=== PATIENT | male | born 1945 | race Caucasian/White ===

== ENCOUNTER 2019-09-27 12:52 | Emergency (ER) | payer BC ==
--- NOTE | 2019-09-27 13:57 | EDM.PDOC ---
<Disha Steiner - Last Filed: 09/27/19 18:17> ED HPI GENERAL MEDICAL PROBLEM - General Chief Complaint: Genitourinary Problem Stated Complaint: MEDICAL [facility]IA [facility] Time Seen by Provider: 09/27/19 13:30 Source of Information: Reports: Patient, Family, RN History Limitations: Reports: No Limitations ( provided history, pt has hx of CVA) - History of Present Illness INITIAL COMMENTS - FREE TEXT/NARRATIVE: Mani presents to the ED with c/o weakness, increased urinary incontinence, and sweating. Pt's spouse provides the history. They are from [place] and in March of this year, the patient was hospitalized for urosepsis for 5 days. In April, he was in the ER for constipation and it was thought it was due to urinary retention that was putting pressure on the colon. A briones catheter was placed for two weeks with the plan to follow-up with urology in 6 weeks. However, then COVID-19 hit and the follow-up was never completed as the felt he was doing better. On Thursday evening, the states that the patient was more awake overnight and had increased incontinence. On thursday, he was wanting to void every 1 hour. He does ambulate with a walker and the noted increased poor balance as of late. Thursday into thursday, increased night time wakefulness still present and was again incontinent. This morning, weakness was more pronounced. was going to shower pt around 8:00 and felt he was too weak and worried about a fall. She was able to get him into his lift chair/ recliner and the left to run a quick errand. When she got home, she was unable to get him out of his chair due to weakness. She called in 2 extra family members to help and still unable to get him from his chair. EMS was then summoned for transport to ED. History of bilateral CVA in 2009. He has some periods of incontinence. He did see a neurologist in [place] prior to coming to [place] and neurologist suspects the patient still has an infection in his urinary tract. Onset: Gradual Duration: Day(s): (2) Location: Reports: Back (mid back pain since march), Other (generalized weakness) Quality: Reports: Ache Associated Symptoms: Reports: Diaphoresis. Denies: Chest Pain, Shortness of Breath - Related Data Allergies Allergy/AdvReac Type Severity Reaction Status Date / Time amoxicillin Allergy Rash Verified 09/30/15 19:17 Home Meds: Home Meds Aspirin 81 mg PO DAILY 09/30/15 [History] Dofetilide [Tikosyn] 500 mg PO BID 09/30/15 [History] Losartan [Cozaar] 50 mg PO DAILY 09/30/15 [History] Venlafaxine [Venlafaxine HCl ER] 300 mg PO DAILY 09/30/15 [History] Warfarin Sodium 6 mg PO DAILY 09/30/15 [History] atorvaSTATin Calcium [Atorvastatin Calcium] 10 mg PO DAILY 09/30/15 [History] ARIPiprazole [Aripiprazole] 5 mg PO DAILY 09/27/19 [History] Glucosam/Chond/Collagen/Hyalur [Glucosamine Chondroitin] 1 each PO DAILY 09/27/19 [History] Past Medical History Cardiovascular History: Reports: Afib Genitourinary History: Reports: Urinary Incontinence, UTI, Recurrent Other Genitourinary History: urosepsis March 2019 Neurological History: Reports: CVA Psychiatric History: Reports: Depression Dermatologic History: Reports: Melanoma - Infectious Disease History Infectious Disease History: Reports: C-Difficile, Measles, Mumps - Past Surgical History HEENT Surgical History: Reports: Oral Surgery GI Surgical History: Reports: Appendectomy Musculoskeletal Surgical History: Reports: Knee Replacement Social & Family History - Tobacco Use Smoking Status *Q: Former Smoker Used Tobacco, but Quit: Yes Month/Year Tobacco Last Used: 45 years ago - Caffeine Use Caffeine Use: Reports: None - Recreational Drug Use Recreational Drug Use: No ED ROS GENERAL - Review of Systems Review Of Systems: See Below Constitutional: Reports: Fatigue, Diaphoresis. Denies: Decreased Appetite HEENT: Reports: No Symptoms. Denies: Vision Change Respiratory: Reports: No Symptoms. Denies: Shortness of Breath, Cough Cardiovascular: Reports: No Symptoms. Denies: Edema Endocrine: Reports: No Symptoms GI/Abdominal: Reports: Abdominal Pain (left sided- mild pain), Diarrhea (on thursday) : Reports: Frequency, Incontinence (has some chronic incontinence) Musculoskeletal: Reports: Back Pain (mid back pain since march) Skin: Reports: No Symptoms Neurological: Reports: Pre-Existing Deficit (hx of bilat CVA in 2009) Psychiatric: Reports: No Symptoms Hematologic/Lymphatic: Reports: No Symptoms Immunologic: Reports: No Symptoms ED EXAM, RENAL/ - Physical Exam Exam: See Below Exam Limited By: Physical Impairment General Appearance: Alert, WD/WN, No Apparent Distress Ears: Normal External Exam, Hearing Grossly Normal Nose: Normal Inspection Throat/Mouth: Normal Inspection Head: Atraumatic, Normocephalic Neck: Normal Inspection, Supple, Non-Tender. No: Lymphadenopathy (R), Lymphadenopathy (L) Respiratory/Chest: No Respiratory Distress, Lungs Clear (diminished), No Accessory Muscle Use, Chest Non-Tender. No: Rales, Rhonchi, Wheezing Cardiovascular: Normal Peripheral Pulses, Regular Rate, Rhythm, No Edema, No Murmur GI/Abdominal: Soft, No Distention, Tender (along left side- with deep palpation), Abnormal Bowel Sounds (hypoactive) (Male) Exam: No: Suprapubic Fullness Rectal (Males) Exam: Deferred Back Exam: Normal Inspection, Decreased Range of Motion (stiff ). No: CVA Tenderness (R), CVA Tenderness (L) Extremities: Normal Inspection, No Pedal Edema, Normal Capillary Refill Neurological: Alert, Oriented, Sensory/Motor Deficit (due to CVA) Psychiatric: Normal Mood Skin Exam: Warm, Diaphoretic Lymphatic: No Adenopathy Course - Radiology Interpretation Free Text/Narrative:: no acute concerns with chest x-ray - Re-Assessments/Exams Free Text/Narrative Re-Assessment/Exam: 09/27/19 15:54 updated patient and spouse on blood work, chest x-ray, and plan for blood cultures and Rocephin. They are agreeable to plan. Free Text/Narrative Re-Assessment/Exam: 09/27/19 17:12 tried to stand patient. pt unable to stand- very weak- falls backwards- took 3 staff to get back to bed. Departure - Departure Time of Disposition: 17:40 Disposition: Refer to Observation Condition: Good Clinical Impression: Weakness generalized, Balance problems, Intraparenchymal hemorrhage of brain - Discharge Information *PRESCRIPTION DRUG MONITORING PROGRAM REVIEWED*: No *COPY OF PRESCRIPTION DRUG MONITORING REPORT IN PATIENT AMBER: No Sepsis Event Note (ED) - Evaluation Sepsis Screening Result: No Definite Risk - Assessment/Plan Plan: call to Dr Dee MD hospitalist for evaluation for admission <Juventino Gilman - Last Filed: 09/27/19 21:02> Course - Vital Signs Last Recorded V/S: Last Vital Signs Temp 97.9 F 09/27/19 19:48 Pulse 69 09/27/19 20:15 Resp 15 09/27/19 20:15 BP 137/74 09/27/19 20:15 Pulse Ox 91 L 09/27/19 20:15 - Orders/Labs/Meds Orders: Active Orders 24 hr Category Date Time Status EKG Documentation Completion [RC] ASDIRECTED Care 09/27/19 14:39 Active CULTURE BLOOD [BC] Urgent Lab 09/27/19 15:55 Received CULTURE BLOOD [BC] Urgent Lab 09/27/19 16:00 Received CULTURE URINE [RM] Stat Lab 09/27/19 14:37 Received Blood Culture x2 Reflex Set [OM.PC] Urgent Oth 09/27/19 15:52 Ordered EKG 12 Lead [EK] Routine Ther 09/27/19 14:39 Ordered Medication Orders Nicardipine HCl 25 mg/ Sodium (Chloride) 250 mls @ 50 mls/hr IV TITRATE KVNG; Protocol Last Admin: 09/27/19 19:53 Dose: 5 mg/hr, 50 mls/hr Documented by: JOSE ANTONIO Labs: Laboratory Tests 09/27/19 09/27/19 09/27/19 Range/Units 13:54 13:54 13:54 WBC 5.5 (4.5-11.0) K/uL RBC 5.06 (4.30-5.90) M/uL Hgb 14.6 (12.0-15.0) g/dL Hct 44.5 (40.0-54.0) % MCV 88 (80-98) fL MCH 29 (27-31) pg MCHC 33 (32-36) % Plt Count 244 (150-400) K/uL Neut % (Auto) 60 (36-66) % Lymph % (Auto) 27 (24-44) % [place] % (Auto) 11 H (2-6) % Eos % (Auto) 2 (2-4) % Baso % (Auto) 0 (0-1) % PT (9.5-12.0) sec INR (0.80-1.20) Sodium 140 (140-148) mmol/L Potassium 4.3 (3.6-5.2) mmol/L Chloride 104 (100-108) mmol/L Carbon Dioxide 26 (21-32) mmol/L Anion Gap 10.1 (5.0-14.0) mmol/L BUN 18 (7-18) mg/dL Creatinine 1.3 (0.8-1.3) mg/dL Est Cr Clr Drug Dosing 53.06 mL/min Estimated GFR (MDRD) 54 L (>60) Glucose 149 H (74-106) mg/dL Lactic Acid (0.4-2.0) mmol/L Calcium 9.0 (8.5-10.1) mg/dL Total Bilirubin 0.3 (0.2-1.0) mg/dL AST 32 (15-37) U/L ALT 42 (12-78) U/L Alkaline Phosphatase 87 (46-116) U/L C-Reactive Protein 0.29 (0.0-0.3) mg/dL Total Protein 7.8 (6.4-8.2) g/dL Albumin 3.5 (3.4-5.0) g/dL Globulin 4.3 H (2.3-3.5) g/dL Albumin/Globulin Ratio 0.8 L (1.2-2.2) Urine Color (YELLOW) Urine Appearance (CLEAR) Urine pH (5.0-8.0) Ur Specific [place] (1.008-1.030) Urine Protein (NEGATIVE) mg/dL Urine Glucose (UA) (NEGATIVE) mg/dL Urine Ketones (NEGATIVE) mg/dL Urine Occult Blood (NEGATIVE) Urine Nitrite (NEGATIVE) Urine Bilirubin (NEGATIVE) Urine Urobilinogen (0.2-1.0) EU/dL Ur Leukocyte Esterase (NEGATIVE) Urine RBC (0-5) Urine WBC (0-5) Ur Epithelial Cells Amorphous Sediment Urine Bacteria Urine Mucus 09/27/19 09/27/19 09/27/19 Range/Units 13:54 14:12 15:20 WBC (4.5-11.0) K/uL RBC (4.30-5.90) M/uL Hgb (12.0-15.0) g/dL Hct (40.0-54.0) % MCV (80-98) fL MCH (27-31) pg MCHC (32-36) % Plt Count (150-400) K/uL Neut % (Auto) (36-66) % Lymph % (Auto) (24-44) % [place] % (Auto) (2-6) % Eos % (Auto) (2-4) % Baso % (Auto) (0-1) % PT 19.1 H (9.5-12.0) sec INR 1.83 H (0.80-1.20) Sodium (140-148) mmol/L Potassium (3.6-5.2) mmol/L Chloride (100-108) mmol/L Carbon Dioxide (21-32) mmol/L Anion Gap (5.0-14.0) mmol/L BUN (7-18) mg/dL Creatinine (0.8-1.3) mg/dL Est Cr Clr Drug Dosing mL/min Estimated GFR (MDRD) (>60) Glucose (74-106) mg/dL Lactic Acid 1.7 (0.4-2.0) mmol/L Calcium (8.5-10.1) mg/dL Total Bilirubin (0.2-1.0) mg/dL AST (15-37) U/L ALT (12-78) U/L Alkaline Phosphatase (46-116) U/L C-Reactive Protein (0.0-0.3) mg/dL Total Protein (6.4-8.2) g/dL Albumin (3.4-5.0) g/dL Globulin (2.3-3.5) g/dL Albumin/Globulin Ratio (1.2-2.2) Urine Color Yellow (YELLOW) Urine Appearance Slightly cloudy A (CLEAR) Urine pH 7.0 (5.0-8.0) Ur Specific [place] 1.025 (1.008-1.030) Urine Protein Negative (NEGATIVE) mg/dL Urine Glucose (UA) Negative (NEGATIVE) mg/dL Urine Ketones Negative (NEGATIVE) mg/dL Urine Occult Blood Trace-intact H (NEGATIVE) Urine Nitrite Positive H (NEGATIVE) Urine Bilirubin Negative (NEGATIVE) Urine Urobilinogen 0.2 (0.2-1.0) EU/dL Ur Leukocyte Esterase Negative (NEGATIVE) Urine RBC 0-5 (0-5) Urine WBC 0-5 (0-5) Ur Epithelial Cells Rare Amorphous Sediment Not seen Urine Bacteria Few Urine Mucus Not seen Meds: Medications Generic Name Dose Route Start Last Admin Trade Name Freq PRN Reason Stop Dose Admin Nicardipine HCl 25 mg/ Sodium 250 mls @ 50 mls/hr 09/27/19 20:00 09/27/19 19:53 Chloride IV 5 mg/hr TITRATE KVNG 50 mls/hr Administration Protocol 5 MG/HR Discontinued Medications Generic Name Dose Route Start Last Admin Trade Name Bob PRN Reason Stop Dose Admin Sodium Chloride 1,000 mls @ 999 mls/hr 09/27/19 14:47 09/27/19 20:20 Normal Saline IV 09/27/19 15:47 30 mls/hr .BOLUS ONE Administration Ceftriaxone Sodium 1 gm/ 50 mls @ 100 mls/hr 09/27/19 15:53 09/27/19 16:05 Sodium Chloride IV 09/27/19 16:22 100 mls/hr ONETIME ONE Administration Sodium Chloride Confirm 09/27/19 19:34 09/27/19 20:37 Normal Saline Administered 09/27/19 19:35 Not Given Dose 250 mls @ as directed .ROUTE .STK-MED ONE Phytonadione 5 mg/ Sodium 50.5 mls @ 100 mls/hr 09/27/19 19:54 09/27/19 20:14 Chloride IV 09/27/19 20:24 100 mls/hr NOW ONE Administration - Re-Assessments/Exams Free Text/Narrative Re-Assessment/Exam: 09/27/19 21:02 Patient was transferred to [facility] in [place] arranged by Dr. Price. He was discharged in stable condition by ground ambulance. Departure - Departure Time of Disposition: 20:45 Sepsis Event Note (ED) - Focused Exam Vital Signs: Vital Signs Temp Pulse Resp BP Pulse Ox 09/27/19 17:11 61 179/90 H 94 L 09/27/19 16:10 63 170/80 H 93 L 09/27/19 15:38 67 127/88 93 L 09/27/19 12:56 97.4 F 66 24 H 168/90 H 95 09/27/19 12:54 97.4 F 66 24 H 168/90 H 95
--- NOTE | 2019-09-27 15:13 | CR ---
CHEST: Portable 09/27/2019 at 2:56 PM CLINICAL HISTORY:Elevated respiratory rate COMPARISON:None FINDINGS: The heart size, pulmonary vascularity and hilar structures are normal. No infiltrate effusion or pneumothorax is seen. There are atherosclerotic changes in the aorta. Widening of the left AC joint may be from old injury IMPRESSION: No acute cardiopulmonary process.
[2019-09-27] MEDS: Sodium Chloride 0.9% 1,000 ML IV ONE ×2 (15:14→20:20)
[2019-09-27] MEDS ORDERED: cefTRIAXone 1 GM in Sodium Chloride 0.9% 50 ML IV ONE (15:53)
--- NOTE | 2019-09-27 17:45 | PCM.HP.2 ---
H&P History of Present Illness - General Date of Service: 09/27/19 Admit Problem/Dx: Admission Diagnosis/Problem Admission Diagnosis/Problem Weakness - Related Data Allergies/Adverse Reactions: Allergies Allergy/AdvReac Type Severity Reaction Status Date / Time amoxicillin Allergy Rash Verified 09/30/15 19:17 Home Medications: Home Meds Aspirin 81 mg PO DAILY 09/30/15 [History] Dofetilide [Tikosyn] 500 mg PO BID 09/30/15 [History] Losartan [Cozaar] 50 mg PO DAILY 09/30/15 [History] Venlafaxine [Venlafaxine HCl ER] 300 mg PO DAILY 09/30/15 [History] Warfarin Sodium 6 mg PO DAILY 09/30/15 [History] atorvaSTATin Calcium [Atorvastatin Calcium] 10 mg PO DAILY 09/30/15 [History] ARIPiprazole [Aripiprazole] 5 mg PO DAILY 09/27/19 [History] Glucosam/Chond/Collagen/Hyalur [Glucosamine Chondroitin] 1 each PO DAILY 09/27/19 [History] Past Medical History Cardiovascular History: Reports: Afib Genitourinary History: Reports: Urinary Incontinence, UTI, Recurrent Other Genitourinary History: urosepsis March 2019 Neurological History: Reports: CVA Psychiatric History: Reports: Depression Dermatologic History: Reports: Melanoma - Infectious Disease History Infectious Disease History: Reports: C-Difficile, Measles, Mumps - Past Surgical History HEENT Surgical History: Reports: Oral Surgery GI Surgical History: Reports: Appendectomy Musculoskeletal Surgical History: Reports: Knee Replacement Social & Family History - Tobacco Use Smoking Status *Q: Former Smoker Used Tobacco, but Quit: Yes Month/Year Tobacco Last Used: 45 years ago - Caffeine Use Caffeine Use: Reports: None - Recreational Drug Use Recreational Drug Use: No Exam - Vital Signs Vital Signs: Last Vital Signs Temp 97.4 F 09/27/19 12:56 Pulse 61 09/27/19 17:11 Resp 24 H 09/27/19 12:56 BP 179/90 H 09/27/19 17:11 Pulse Ox 94 L 09/27/19 17:11 Weight: 200 lb - Patient Data Lab Results Last 24 hrs: Laboratory Results - last 24 hr 09/27/19 09/27/19 09/27/19 Range/Units 13:54 13:54 13:54 WBC 5.5 (4.5-11.0) K/uL RBC 5.06 (4.30-5.90) M/uL Hgb 14.6 (12.0-15.0) g/dL Hct 44.5 (40.0-54.0) % MCV 88 (80-98) fL MCH 29 (27-31) pg MCHC 33 (32-36) % Plt Count 244 (150-400) K/uL Neut % (Auto) 60 (36-66) % Lymph % (Auto) 27 (24-44) % [place] % (Auto) 11 H (2-6) % Eos % (Auto) 2 (2-4) % Baso % (Auto) 0 (0-1) % Sodium 140 (140-148) mmol/L Potassium 4.3 (3.6-5.2) mmol/L Chloride 104 (100-108) mmol/L Carbon Dioxide 26 (21-32) mmol/L Anion Gap 10.1 (5.0-14.0) mmol/L BUN 18 (7-18) mg/dL Creatinine 1.3 (0.8-1.3) mg/dL Est Cr Clr Drug Dosing 53.06 mL/min Estimated GFR (MDRD) 54 L (>60) Glucose 149 H (74-106) mg/dL Lactic Acid (0.4-2.0) mmol/L Calcium 9.0 (8.5-10.1) mg/dL Total Bilirubin 0.3 (0.2-1.0) mg/dL AST 32 (15-37) U/L ALT 42 (12-78) U/L Alkaline Phosphatase 87 (46-116) U/L C-Reactive Protein 0.29 (0.0-0.3) mg/dL Total Protein 7.8 (6.4-8.2) g/dL Albumin 3.5 (3.4-5.0) g/dL Globulin 4.3 H (2.3-3.5) g/dL Albumin/Globulin Ratio 0.8 L (1.2-2.2) Urine Color (YELLOW) Urine Appearance (CLEAR) Urine pH (5.0-8.0) Ur Specific [place] (1.008-1.030) Urine Protein (NEGATIVE) mg/dL Urine Glucose (UA) (NEGATIVE) mg/dL Urine Ketones (NEGATIVE) mg/dL Urine Occult Blood (NEGATIVE) Urine Nitrite (NEGATIVE) Urine Bilirubin (NEGATIVE) Urine Urobilinogen (0.2-1.0) EU/dL Ur Leukocyte Esterase (NEGATIVE) Urine RBC (0-5) Urine WBC (0-5) Ur Epithelial Cells Amorphous Sediment Urine Bacteria Urine Mucus 09/27/19 09/27/19 Range/Units 14:12 15:20 WBC (4.5-11.0) K/uL RBC (4.30-5.90) M/uL Hgb (12.0-15.0) g/dL Hct (40.0-54.0) % MCV (80-98) fL MCH (27-31) pg MCHC (32-36) % Plt Count (150-400) K/uL Neut % (Auto) (36-66) % Lymph % (Auto) (24-44) % [place] % (Auto) (2-6) % Eos % (Auto) (2-4) % Baso % (Auto) (0-1) % Sodium (140-148) mmol/L Potassium (3.6-5.2) mmol/L Chloride (100-108) mmol/L Carbon Dioxide (21-32) mmol/L Anion Gap (5.0-14.0) mmol/L BUN (7-18) mg/dL Creatinine (0.8-1.3) mg/dL Est Cr Clr Drug Dosing mL/min Estimated GFR (MDRD) (>60) Glucose (74-106) mg/dL Lactic Acid 1.7 (0.4-2.0) mmol/L Calcium (8.5-10.1) mg/dL Total Bilirubin (0.2-1.0) mg/dL AST (15-37) U/L ALT (12-78) U/L Alkaline Phosphatase (46-116) U/L C-Reactive Protein (0.0-0.3) mg/dL Total Protein (6.4-8.2) g/dL Albumin (3.4-5.0) g/dL Globulin (2.3-3.5) g/dL Albumin/Globulin Ratio (1.2-2.2) Urine Color Yellow (YELLOW) Urine Appearance Slightly cloudy A (CLEAR) Urine pH 7.0 (5.0-8.0) Ur Specific [place] 1.025 (1.008-1.030) Urine Protein Negative (NEGATIVE) mg/dL Urine Glucose (UA) Negative (NEGATIVE) mg/dL Urine Ketones Negative (NEGATIVE) mg/dL Urine Occult Blood Trace-intact H (NEGATIVE) Urine Nitrite Positive H (NEGATIVE) Urine Bilirubin Negative (NEGATIVE) Urine Urobilinogen 0.2 (0.2-1.0) EU/dL Ur Leukocyte Esterase Negative (NEGATIVE) Urine RBC 0-5 (0-5) Urine WBC 0-5 (0-5) Ur Epithelial Cells Rare Amorphous Sediment Not seen Urine Bacteria Few Urine Mucus Not seen Result Diagrams: 09/27/19 13:54 09/27/19 13:54 Sepsis Event Note - Evaluation Sepsis Screening Result: No Definite Risk - Focused Exam Vital Signs: Vital Signs Temp Pulse Resp BP Pulse Ox 09/27/19 17:11 61 179/90 H 94 L 09/27/19 16:10 63 170/80 H 93 L 09/27/19 15:38 67 127/88 93 L 09/27/19 12:56 97.4 F 66 24 H 168/90 H 95 09/27/19 12:54 97.4 F 66 24 H 168/90 H 95 Date Exam was Performed: 09/27/19 Time Exam was Performed: 17:45 Orders Last 24hrs: Active Orders 24 hr Category Date Time Status Patient Status Manage Transfer [TRANSFER] Routine ADT 09/27/19 17:22 Active EKG Documentation Completion [RC] ASDIRECTED Care 09/27/19 14:39 Active Head wo Cont [CT] Stat Exams 09/27/19 17:32 Ordered CULTURE BLOOD [BC] Urgent Lab 09/27/19 15:55 Received CULTURE BLOOD [BC] Urgent Lab 09/27/19 16:00 Received CULTURE URINE [RM] Stat Lab 09/27/19 14:37 Received Blood Culture x2 Reflex Set [OM.PC] Urgent Oth 09/27/19 15:52 Ordered Resuscitation Status Routine Resus Stat 09/27/19 17:26 Ordered EKG 12 Lead [EK] Routine Ther 09/27/19 14:39 Ordered
--- NOTE | 2019-09-27 18:33 | CRLCT ---
INDICATION: Abrupt weakness, unable to ambulate. History of previous CVAs. COMPARISON: None. TECHNIQUE: CT of the head without IV contrast. Coronal and sagittal reconstructions are provided. FINDINGS: There is an acute hyperdense intraparenchymal hemorrhage within the right thalamus measuring 1.0 x 0.5 x 0.7 cm (series 4, image 25 and series 6, image 42). No surrounding edema or mass effect. No midline shift. No abnormal extra-axial fluid collections. Old lacunar infarct in the right basal ganglia. Old infarct with encephalomalacia in the right superior parietal lobe. Moderate generalized cerebral and cerebellar volume loss with ex vacuo dilation of the lateral ventricles. Moderate chronic small vessel ischemic disease. Intracranial vascular calcifications. The visualized orbits and extraocular muscles are symmetric. Hypoplastic frontal sinuses bilaterally. The visualized paranasal sinuses and mastoid air cells are otherwise clear. No acute fracture. Soft tissues are unremarkable. IMPRESSION: : Acute hyperdense intraparenchymal hemorrhage within the right thalamus measuring 1.0 x 0.5 x 0.7 cm. No mass effect or midline shift. Findings discussed with Tiny Koo at 6:30 p.m. on 09/27/2019. Please note that all CT scans at this facility use dose modulation, iterative reconstruction, and/or weight-based dosing when appropriate to reduce radiation dose to as low as reasonably achievable. Dictated by Neli Zavaleta MD @ Sep 27 2019 6:21PM Signed by Dr. Neli Zavaleta @ Sep 27 2019 6:31PM
[2019-09-27] MEDS ORDERED: Sodium Chloride 0.9% 250 ML ONE (19:34)
--- NOTE | 2019-09-27 19:47 | PCM.CONS ---
H&P History of Present Illness - General Date of Service: 09/27/19 Admit Problem/Dx: Admission Diagnosis/Problem Admission Diagnosis/Problem Weakness Source of Information: Patient, Family, Provider, RN Notes Reviewed History Limitations: Reports: Altered Mental Status (Cognitive impairment, expressive a aphasia) - History of Present Illness Initial Comments - Free Text/Narative: Mr. Pereira is a 74-year-old gentleman who I was asked to see by Dr. Koo in the emergency department for possible hospital admission. Mr. Pereira has a known history of 2 previous CVAs occurring approximately 10 years ago. CVAs have left him with some expressive a aphasia and difficulty with ambulation. He was hospitalized in [place] in March of this year with urinary tract infection and sepsis. His reports that since then he is lost ground physically and cognitively. He has become progressively more weak and confused. He was able to ambulate yesterday but today was profoundly weak and unable to stand or transfer himself out of the chair. He was brought into the emergency department for further evaluation. Blood pressure was noted to be elevated otherwise vital signs were stable. Chest x-ray was clear and his white blood cell count was within normal range. Was felt to have possible urinary tract infection, cultures were obtained and he was started on IV ceftriaxone. On my review I did not feel that there was enough finding on urinalysis to explain his current symptoms. Prior to admission CT scan of the head was obtained and showed a 1 cm intraparenchymal hemorrhage in the right thalamus. Mr. Pereira is unable to provide meaningful information concerning symptoms or review of systems because of his cognitive impairment and aphasia. - Related Data Allergies/Adverse Reactions: Allergies Allergy/AdvReac Type Severity Reaction Status Date / Time amoxicillin Allergy Rash Verified 09/30/15 19:17 Home Medications: Home Meds Aspirin 81 mg PO DAILY 09/30/15 [History] Dofetilide [Tikosyn] 500 mg PO BID 09/30/15 [History] Losartan [Cozaar] 50 mg PO DAILY 09/30/15 [History] Venlafaxine [Venlafaxine HCl ER] 300 mg PO DAILY 09/30/15 [History] Warfarin Sodium 6 mg PO DAILY 09/30/15 [History] atorvaSTATin Calcium [Atorvastatin Calcium] 10 mg PO DAILY 09/30/15 [History] ARIPiprazole [Aripiprazole] 5 mg PO DAILY 09/27/19 [History] Glucosam/Chond/Collagen/Hyalur [Glucosamine Chondroitin] 1 each PO DAILY 09/27/19 [History] Past Medical History Cardiovascular History: Reports: Afib Genitourinary History: Reports: Urinary Incontinence, UTI, Recurrent Other Genitourinary History: urosepsis March 2019 Neurological History: Reports: CVA Psychiatric History: Reports: Depression Dermatologic History: Reports: Melanoma - Infectious Disease History Infectious Disease History: Reports: C-Difficile, Measles, Mumps - Past Surgical History HEENT Surgical History: Reports: Oral Surgery GI Surgical History: Reports: Appendectomy Musculoskeletal Surgical History: Reports: Knee Replacement Social & Family History - Tobacco Use Smoking Status *Q: Former Smoker Used Tobacco, but Quit: Yes Month/Year Tobacco Last Used: 45 years ago - Caffeine Use Caffeine Use: Reports: None - Recreational Drug Use Recreational Drug Use: No H&P Review of Systems - Review of Systems: Review Of Systems: See Below General: Reports: ROS unobtainable (Cognitive impairment and a aphasia) Exam - Exam Exam: See Below - Vital Signs Vital Signs: Last Vital Signs Temp 97.4 F 09/27/19 12:56 Pulse 63 09/27/19 18:48 Resp 24 H 09/27/19 12:56 BP 151/102 H 09/27/19 18:48 Pulse Ox 94 L 09/27/19 17:11 Weight: 200 lb - Exam General: Alert, Cooperative, Mild Distress. No: Oriented HEENT: PERRLA, Conjunctiva Clear, Hearing Intact, Mucosa Moist & [place], Normal Nasal Septum, Posterior Pharynx Clear Neck: Supple, Trachea Midline, +2 Carotid Pulse wo Bruit Lungs: Clear to Auscultation, Normal Respiratory Effort Cardiovascular: Regular Rate, Normal S1, Normal S2, Irregular Rhythm. No: Systolic Murmur, Diastolic Murmur GI/Abdominal Exam: Soft, Non-Tender, No Organomegaly, No Distention Extremities: Non-Tender, No Pedal Edema Skin: Warm, Dry, Intact Neurological: Strength Equal Bilateral, Normal Tone, Sensation Intact, Other (Di scoordination on the left). No: Normal Speech Neuro Extensive - Mental Status: Alert, Normal Mood/Affect. No: Normal Cognition, Memory Intact - Patient Data Lab Results Last 24 hrs: Laboratory Results - last 24 hr 09/27/19 09/27/1909/26/20 Range/Units 13:54 13:54 13:54 WBC 5.5 (4.5-11.0) K/uL RBC 5.06 (4.30-5.90) M/uL Hgb 14.6 (12.0-15.0) g/dL Hct 44.5 (40.0-54.0) % MCV 88 (80-98) fL MCH 29 (27-31) pg MCHC 33 (32-36) % Plt Count 244 (150-400) K/uL Neut % (Auto) 60 (36-66) % Lymph % (Auto) 27 (24-44) % [place] % (Auto) 11 H (2-6) % Eos % (Auto) 2 (2-4) % Baso % (Auto) 0 (0-1) % PT (9.5-12.0) sec INR (0.80-1.20) Sodium 140 (140-148) mmol/L Potassium 4.3 (3.6-5.2) mmol/L Chloride 104 (100-108) mmol/L Carbon Dioxide 26 (21-32) mmol/L Anion Gap 10.1 (5.0-14.0) mmol/L BUN 18 (7-18) mg/dL Creatinine 1.3 (0.8-1.3) mg/dL Est Cr Clr Drug Dosing 53.06 mL/min Estimated GFR (MDRD) 54 L (>60) Glucose 149 H (74-106) mg/dL Lactic Acid (0.4-2.0) mmol/L Calcium 9.0 (8.5-10.1) mg/dL Total Bilirubin 0.3 (0.2-1.0) mg/dL AST 32 (15-37) U/L ALT 42 (12-78) U/L Alkaline Phosphatase 87 (46-116) U/L C-Reactive Protein 0.29 (0.0-0.3) mg/dL Total Protein 7.8 (6.4-8.2) g/dL Albumin 3.5 (3.4-5.0) g/dL Globulin 4.3 H (2.3-3.5) g/dL Albumin/Globulin Ratio 0.8 L (1.2-2.2) Urine Color (YELLOW) Urine Appearance (CLEAR) Urine pH (5.0-8.0) Ur Specific Wis[place] (1.008-1.030) Urine Protein (NEGATIVE) mg/dL Urine Glucose (UA) (NEGATIVE) mg/dL Urine Ketones (NEGATIVE) mg/dL Urine Occult Blood (NEGATIVE) Urine Nitrite (NEGATIVE) Urine Bilirubin (NEGATIVE) Urine Urobilinogen (0.2-1.0) EU/dL Ur Leukocyte Esterase (NEGATIVE) Urine RBC (0-5) Urine WBC (0-5) Ur Epithelial Cells Amorphous Sediment Urine Bacteria Urine Mucus 09/27/19 09/27/19 09/27/19 Range/Units 13:54 14:12 15:20 WBC (4.5-11.0) K/uL RBC (4.30-5.90) M/uL Hgb (12.0-15.0) g/dL Hct (40.0-54.0) % MCV (80-98) fL MCH (27-31) pg MCHC (32-36) % Plt Count (150-400) K/uL Neut % (Auto) (36-66) % Lymph % (Auto) (24-44) % Bollinger % (Auto) (2-6) % Eos % (Auto) (2-4) % Baso % (Auto) (0-1) % PT 19.1 H (9.5-12.0) sec INR 1.83 H (0.80-1.20) Sodium (140-148) mmol/L Potassium (3.6-5.2) mmol/L Chloride (100-108) mmol/L Carbon Dioxide (21-32) mmol/L Anion Gap (5.0-14.0) mmol/L BUN (7-18) mg/dL Creatinine (0.8-1.3) mg/dL Est Cr Clr Drug Dosing mL/min Estimated GFR (MDRD) (>60) Glucose (74-106) mg/dL Lactic Acid 1.7 (0.4-2.0) mmol/L Calcium (8.5-10.1) mg/dL Total Bilirubin (0.2-1.0) mg/dL AST (15-37) U/L ALT (12-78) U/L Alkaline Phosphatase (46-116) U/L C-Reactive Protein (0.0-0.3) mg/dL Total Protein (6.4-8.2) g/dL Albumin (3.4-5.0) g/dL Globulin (2.3-3.5) g/dL Albumin/Globulin Ratio (1.2-2.2) Urine Color Yellow (YELLOW) Urine Appearance Slightly cloudy A (CLEAR) Urine pH 7.0 (5.0-8.0) Ur Specific [place] 1.025 (1.008-1.030) Urine Protein Negative (NEGATIVE) mg/dL Urine Glucose (UA) Negative (NEGATIVE) mg/dL Urine Ketones Negative (NEGATIVE) mg/dL Urine Occult Blood Trace-intact H (NEGATIVE) Urine Nitrite Positive H (NEGATIVE) Urine Bilirubin Negative (NEGATIVE) Urine Urobilinogen 0.2 (0.2-1.0) EU/dL Ur Leukocyte Esterase Negative (NEGATIVE) Urine RBC 0-5 (0-5) Urine WBC 0-5 (0-5) Ur Epithelial Cells Rare Amorphous Sediment Not seen Urine Bacteria Few Urine Mucus Not seen Result Diagrams: 09/27/19 13:54 09/27/19 13:54 Sepsis Event Note - Evaluation Sepsis Screening Result: No Definite Risk - Focused Exam Vital Signs: Vital Signs Temp Pulse Resp BP Pulse Ox 09/27/19 18:48 63 151/102 H 09/27/19 18:00 66 162/93 H 09/27/19 17:11 61 179/90 H 94 L 09/27/19 16:10 63 170/80 H 93 L 09/27/19 15:38 67 127/88 93 L 09/27/19 12:56 97.4 F 66 24 H 168/90 H 95 09/27/19 12:54 97.4 F 66 24 H 168/90 H 95 Date Exam was Performed: 09/27/19 Time Exam was Performed: 19:42 *Q Meaningful Use (ADM) - VTE *Q VTE Pharmacological Contraindications *Q: Active Hemorrhage - VTE Risk Assess *Q Each Risk Factor Represents 1 Point: Obesity ( BMI > 25 kg/m2) Total Score 1 Point Risk Factors: 1 Each Risk Factor Represents 2 Points: None Total Score 2 Point Risk Factors: 0 Each Risk Factor Represents 3 Points: Age 75 Years or Greater Total Score 3 Point Risk Factors: 3 Each Risk Factor Represents 5 Points: Stroke, Less than 1 Month Total Score 5 Point Risk Factors: 5 Venous Thromboembolism Risk Factor Score *Q: 9 Consult PN Assessment/Plan Procedures: Procedures EMERGENCY DEPT VISIT (09/30/15) IMMUNIZATION ADMIN (09/30/15) INTMD RPR S/A/T/EXT 2.6-7.5 (09/30/15) TDAP VACCINE 7 YRS/> IM (09/30/15) Problem List Initiated/Reviewed/Updated: Yes My Orders Last 24 Hours: My Active Orders 09/27/19 17:22 Patient Status Manage Transfer [TRANSFER] Routine 09/27/19 17:26 Resuscitation Status Routine 09/27/19 20:00 niCARdipine 25 MG in Normal Saline @ 5 MG/HR(250ml) niCARdipine HCl [Nicardipine HCl] 25 mg Sodium Chloride 0.9% [Normal Saline] 240 ml IV TITRATE Plan: ASSESSMENT AND RECOMMENDATIONS INTRAPARENCHYMAL HEMORRHAGE RIGHT THALAMUS-likely secondary to hypertension and underlying therapy with warfarin. Discussed with neurosurgery and environmental health and safety manager long filler cigar roller machine at [facility]. -Transfer patient via [facility] ambulance to [facility] for further subspecialty care -IV nicardipine, to maintain systolic pressure less than 140 and diastolic less than 90 -IV vitamin K 5 mg now to reverse INR of 1.86 Requesting Provider: [facility] [place] Date Consult Requested: 09/27/19 Reason for Consult: Weakness Patient History Reviewed: Yes Notified Requestor: Yes
[2019-09-27] MEDS ORDERED: Phytonadione 5 MG in Sodium Chloride 0.9% 50 ML IV ONE (19:54)
[2019-09-27] MEDS ORDERED: niCARdipine HCl 25 MG in Sodium Chloride 0.9% 240 ML IV SCH (20:00)
[2019-09-27 20:27] VITALS: BP 137/74; PULSE 69
== END 2019-09-27 20:35 ==
LOC: JP.ED 12:52 → JP.MS 17:22 → UNDOADMOB 17:22
DX: S06.309A Unspecified focal traumatic brain injury with loss of consciousness of unspecified duration, initial encounter (principal); R53.1 Weakness; R26.9 Unspecified abnormalities of gait and mobility; I48.91 Unspecified atrial fibrillation; F32.9 Major depressive disorder, single episode, unspecified; Z86.73 Personal history of transient ischemic attack (TIA), and cerebral infarction without residual deficits; Z79.82 Long term (current) use of aspirin; Z79.01 Long term (current) use of anticoagulants; Z79.899 Other long term (current) drug therapy; Z87.891 Personal history of nicotine dependence; W19.XXXA Unspecified fall, initial encounter
CPT/HCPCS: 36415; 70450; 71045; 80053; 81001; 83605; 85025; 85610; 86140; 87040; 87086; 87088; 87186; 93005; 93010; 96365; 96367; 96368; 99285; J0696; J3430; J7030; J7050

== ENCOUNTER 2019-10-01 21:58 | Emergency (ER) | payer BC ==
--- NOTE | 2019-10-01 22:12 | EDM.PDOC ---
ED HPI GENERAL MEDICAL PROBLEM - General Chief Complaint: Neuro Symptoms/Deficits Stated Complaint: MEDICAL VIA NORTH Time Seen by Provider: 10/01/19 22:09 Source of Information: Reports: Patient, EMS, Family History Limitations: Reports: No Limitations - History of Present Illness INITIAL COMMENTS - FREE TEXT/NARRATIVE: 74 yo male here via EMS from a local [facility] where he was recently admitted after an intraparenchymal bleed. He spent a few days at [facility] for this before discharge and admission to our local [facility]. He is from [place] and is , his is here at bedside and is very helpful. She says he deteriorates somewhat neurologically every day at the end of the day due to fatigue. He was sent for eval by the [facility] staff for this same issue. He has no new RUBIN or new focal deficits. No fever. No new injury. Onset: Today, Gradual Onset Date: 10/01/19 Duration: Minutes: Location: Reports: Generalized Quality: Reports: Other (no pain reported) Severity: Mild Improves with: Reports: Rest (?) Worsens with: Reports: Other (? fatigue) Context: Reports: Other (See HPI) Associated Symptoms: Reports: Confusion (mild, intermittent, some baseline chronic confusion), Weakness (generalized) Treatments ENGINEERING SURVEYOR: Reports: Other (see below) (none) - Related Data Allergies Allergy/AdvReac Type Severity Reaction Status Date / Time amoxicillin Allergy Rash Verified 09/30/15 19:17 Home Meds: Home Meds Dofetilide [Tikosyn] 500 mg PO BID 09/30/15 [History] Losartan [Cozaar] 50 mg PO DAILY 09/30/15 [History] Venlafaxine [Venlafaxine HCl ER] 300 mg PO DAILY 09/30/15 [History] atorvaSTATin Calcium [Atorvastatin Calcium] 40 mg PO DAILY 09/30/15 [History] ARIPiprazole [Aripiprazole] 5 mg PO DAILY 09/27/19 [History] Past Medical History Cardiovascular History: Reports: Afib Genitourinary History: Reports: Urinary Incontinence, UTI, Recurrent Other Genitourinary History: urosepsis March 2019 Neurological History: Reports: CVA Psychiatric History: Reports: Depression Dermatologic History: Reports: Melanoma - Infectious Disease History Infectious Disease History: Reports: C-Difficile, Measles, Mumps - Past Surgical History HEENT Surgical History: Reports: Oral Surgery GI Surgical History: Reports: Appendectomy Musculoskeletal Surgical History: Reports: Knee Replacement Social & Family History - Caffeine Use Caffeine Use: Reports: None ED ROS GENERAL - Review of Systems Review Of Systems: See Below Constitutional: Reports: No Symptoms HEENT: Reports: No Symptoms Respiratory: Reports: No Symptoms Cardiovascular: Reports: No Symptoms GI/Abdominal: Reports: No Symptoms : Reports: No Symptoms Musculoskeletal: Reports: No Symptoms Skin: Reports: No Symptoms Neurological: Reports: Confusion (mild, intermittently worse. Some chronic confusion.), Pre-Existing Deficit, Difficulty Walking (chronic), Weakness (generalized). Denies: Headache, Numbness Psychiatric: Reports: No Symptoms ED EXAM, NEURO - Physical Exam Exam: See Below Exam Limited By: No Limitations General Appearance: Alert, WD/WN, No Apparent Distress Eye Exam: Bilateral Eye: Normal Inspection Ears: Normal External Exam, Normal Canal, Hearing Grossly Normal, Normal TMs Nose: Normal Inspection, No Blood Throat/Mouth: Normal Inspection, Normal Lips, Normal Oropharynx, Normal Voice, No Airway Compromise Head Exam: Atraumatic, Normocephalic Neck: Normal Inspection Respiratory/Chest: No Respiratory Distress, Lungs Clear, Normal Breath Sounds, No Accessory Muscle Use Cardiovascular: Regular Rate, Rhythm, No Edema GI/Abdominal: Normal Bowel Sounds, Soft, Non-Tender Neurological: Alert, Normal Mood/Affect, CN II-XII Intact, No Motor/Sensory Deficits Back Exam: Normal Inspection Extremities: Normal Inspection, Normal Range of Motion, Non-Tender, No Pedal Edema Psychiatric: Normal Affect, Normal Mood Skin Exam: Warm, Dry, Intact, Normal Color, No Rash Course - Vital Signs Last Recorded V/S: Last Vital Signs Temp 35.9 C L 10/01/19 22:15 Pulse 63 10/01/19 22:15 Resp 26 H 10/01/19 22:15 BP 124/72 10/01/19 22:15 Pulse Ox 92 L 10/01/19 22:15 Departure - Departure Time of Disposition: 22:50 Disposition: Home, Self-Care 01 Condition: Good Clinical Impression: Fatigue Qualifiers: Fatigue type: unspecified Qualified Code(s): R53.83 - Other fatigue - Discharge Information *PRESCRIPTION DRUG MONITORING PROGRAM REVIEWED*: No *COPY OF PRESCRIPTION DRUG MONITORING REPORT IN PATIENT AMBER: No Referrals: PCP,None [Primary Care Provider] - Forms: ED Department Discharge Additional Instructions: Continue current treatments and medications. Expect some generalize weakness/neurological deterioration at the end of the day due to fatigue. Recheck as needed. Sepsis Event Note (ED) - Focused Exam Vital Signs: Vital Signs Temp Pulse Resp BP Pulse Ox 10/01/19 22:15 35.9 C L 63 26 H 124/72 92 L
[2019-10-01 22:27] VITALS: BP 124/72; PULSE 63
== END 2019-10-01 23:01 | disposition home or self-care (01) ==
LOC: JP.ED 21:58
DX: R53.83 Other fatigue (principal); Z88.0 Allergy status to penicillin; Z79.899 Other long term (current) drug therapy; Z86.73 Personal history of transient ischemic attack (TIA), and cerebral infarction without residual deficits
CPT/HCPCS: 99282; 99284

== ENCOUNTER 2019-11-27 06:15 | Emergency (ER) | payer BC ==
[2019-11-27] MEDS ORDERED: Sodium Chloride 0.9% 10 ML Syringe FLUSH PRN (06:45)
--- NOTE | 2019-11-27 07:42 | EDM.PDOC ---
ED HPI GENERAL MEDICAL PROBLEM - General Chief Complaint: General Stated Complaint: FALL VIA NORTH Time Seen by Provider: 11/27/19 07:00 Source of Information: Reports: EMS, Family History Limitations: Reports: No Limitations - History of Present Illness INITIAL COMMENTS - FREE TEXT/NARRATIVE: 74-year-old male with a previous history of CVA, weakness, confusion, was found at the side of his bed this morning diaphoretic and shaky and unable to get back into bed. His could not help him so called the ambulance. They felt he should be assessed. This has happened to him before, he has no complaints. Vitals are stable at this time. Onset: Unknown/Unsure Associated Symptoms: Reports: Confusion (Chronic and stable), Diaphoresis, Malaise, Weakness. Denies: Chest Pain, Cough, Shortness of Breath - Related Data Allergies Allergy/AdvReac Type Severity Reaction Status Date / Time amoxicillin Allergy Rash Verified 11/27/19 06:26 Home Meds: Home Meds Dofetilide [Tikosyn] 500 mg PO BID 09/30/15 [History] Losartan [Cozaar] 50 mg PO DAILY 09/30/15 [History] Venlafaxine [Venlafaxine HCl ER] 300 mg PO DAILY 09/30/15 [History] atorvaSTATin Calcium [Atorvastatin Calcium] 40 mg PO DAILY 09/30/15 [History] ARIPiprazole [Aripiprazole] 5 mg PO DAILY 09/27/19 [History] Aspirin [Adult Low Dose Aspirin EC] 81 mg PO DAILY 11/27/19 [History] Glucosam/Chondr/Collagn/Hyalur [Glucosamine & Chondroitin Cap] 1 tab PO DAILY 11/27/19 [History] Past Medical History Cardiovascular History: Reports: Afib, High Cholesterol, Hypertension Gastrointestinal History: Reports: Chronic Constipation Genitourinary History: Reports: Urinary Incontinence, UTI, Recurrent Other Genitourinary History: urosepsis March 2019 Musculoskeletal History: Reports: Arthritis Neurological History: Reports: CVA Psychiatric History: Reports: Depression Endocrine/Metabolic History: Reports: Obesity/BMI 30+ Oncologic (Cancer) History: Reports: Other (See Below) Other Oncologic History: skin melanoma not malignant Dermatologic History: Reports: Melanoma - Infectious Disease History Infectious Disease History: Reports: C-Difficile, Measles, Mumps - Past Surgical History HEENT Surgical History: Reports: Oral Surgery GI Surgical History: Reports: Appendectomy Male Surgical History: Reports: None Musculoskeletal Surgical History: Reports: Knee Replacement Social & Family History - Tobacco Use Smoking Status *Q: Former Smoker Used Tobacco, but Quit: Yes Month/Year Tobacco Last Used: 40 - Caffeine Use Caffeine Use: Reports: None - Recreational Drug Use Recreational Drug Use: No ED ROS GENERAL - Review of Systems Review Of Systems: See Below Constitutional: Reports: Malaise. Denies: Fever, Chills HEENT: Denies: Vision Change Respiratory: Denies: Shortness of Breath Cardiovascular: Denies: Chest Pain, Palpitations GI/Abdominal: Denies: Nausea, Vomiting : Reports: Other (Chronic intermittent incontinence, no dysuria. He does have a history of UTI.) Skin: Reports: Diaphoresis Neurological: Reports: Confusion, Weakness. Denies: Change in Speech ED EXAM, GENERAL - Physical Exam Exam: See Below Exam Limited By: No Limitations General Appearance: Alert, No Apparent Distress, Other (Answering questions appropriately) Eye Exam: Bilateral Eye: EOMI Head: Atraumatic Neck: Supple, Non-Tender Respiratory/Chest: Lungs Clear Cardiovascular: Regular Rate, Rhythm GI/Abdominal: Soft, Non-Tender Extremities: Other (No sign of injury or bruising, nontender passive range of motion of the hips) Neurological: Alert, Oriented Psychiatric: Flat Affect Course - Vital Signs Last Recorded V/S: Last Vital Signs Temp 97.0 F 11/27/19 06:21 Pulse 63 11/27/19 08:15 Resp 16 11/27/19 08:15 BP 141/78 H 11/27/19 08:15 Pulse Ox 97 11/27/19 08:15 - Orders/Labs/Meds Orders: Active Orders 24 hr Category Date Time Status Saline Lock Insert [OM.PC] Routine Oth 11/27/19 06:45 Ordered Labs: Laboratory Tests 11/27/19 11/27/19 11/27/19 Range/Units 06:58 06:58 07:12 WBC 7.2 (4.5-11.0) K/uL RBC 5.23 (4.30-5.90) M/uL Hgb 14.9 (12.0-15.0) g/dL Hct 47.0 (40.0-54.0) % MCV 90 (80-98) fL MCH 29 (27-31) pg MCHC 32 (32-36) % Plt Count 242 (150-400) K/uL Sodium 140 (140-148) mmol/L Potassium 4.6 (3.6-5.2) mmol/L Chloride 103 (100-108) mmol/L Carbon Dioxide 26 (21-32) mmol/L Anion Gap 10.7 (5.0-14.0) mmol/L BUN 20 H (7-18) mg/dL Creatinine 1.3 (0.8-1.3) mg/dL Est Cr Clr Drug Dosing 53.06 mL/min Estimated GFR (MDRD) 54 L (>60) Glucose 116 H (74-106) mg/dL Calcium 9.7 (8.5-10.1) mg/dL Creatine Kinase 133 (39-308) U/L Troponin I < 0.017 (0.000-0.056) ng/mL Urine Color (YELLOW) Urine Appearance (CLEAR) Urine pH (5.0-8.0) Ur Specific [place] (1.008-1.030) Urine Protein (NEGATIVE) mg/dL Urine Glucose (UA) (NEGATIVE) mg/dL Urine Ketones (NEGATIVE) mg/dL Urine Occult Blood (NEGATIVE) Urine Nitrite (NEGATIVE) Urine Bilirubin (NEGATIVE) Urine Urobilinogen (0.2-1.0) EU/dL Ur Leukocyte Esterase (NEGATIVE) Urine RBC (0-5) Urine WBC (0-5) Ur Epithelial Cells Amorphous Sediment Urine Bacteria Urine Mucus 11/27/19 Range/Units 07:26 WBC (4.5-11.0) K/uL RBC (4.30-5.90) M/uL Hgb (12.0-15.0) g/dL Hct (40.0-54.0) % MCV (80-98) fL MCH (27-31) pg MCHC (32-36) % Plt Count (150-400) K/uL Sodium (140-148) mmol/L Potassium (3.6-5.2) mmol/L Chloride (100-108) mmol/L Carbon Dioxide (21-32) mmol/L Anion Gap (5.0-14.0) mmol/L BUN (7-18) mg/dL Creatinine (0.8-1.3) mg/dL Est Cr Clr Drug Dosing mL/min Estimated GFR (MDRD) (>60) Glucose (74-106) mg/dL Calcium (8.5-10.1) mg/dL Creatine Kinase (39-308) U/L Troponin I (0.000-0.056) ng/mL Urine Color Yellow (YELLOW) Urine Appearance Clear (CLEAR) Urine pH 5.5 (5.0-8.0) Ur Specific [place] 1.025 (1.008-1.030) Urine Protein Negative (NEGATIVE) mg/dL Urine Glucose (UA) Negative (NEGATIVE) mg/dL Urine Ketones Negative (NEGATIVE) mg/dL Urine Occult Blood Negative (NEGATIVE) Urine Nitrite Negative (NEGATIVE) Urine Bilirubin Negative (NEGATIVE) Urine Urobilinogen 0.2 (0.2-1.0) EU/dL Ur Leukocyte Esterase Negative (NEGATIVE) Urine RBC 0-5 (0-5) Urine WBC 0-5 (0-5) Ur Epithelial Cells Rare Amorphous Sediment Not seen Urine Bacteria Not seen Urine Mucus Not seen Meds: Medications Discontinued Medications Generic Name Dose Route Start Last Admin Trade Name Aldairq PRN Reason Stop Dose Admin Sodium Chloride 10 ml 11/27/19 06:45 11/27/19 06:59 Saline Flush FLUSH 10 ml ASDIRECTED PRN Administration Keep Vein Open - Re-Assessments/Exams Free Text/Narrative Re-Assessment/Exam: 11/27/19 07:47 CBC, CMP, troponin, CK and UA were obtained. and patient feel he can return home if these are reassuring. 11/27/19 07:52 Urine is clear, labs are excellent, troponin 0 and CK normal. He will attempt to ambulate with his walker to see if he is back to baseline. 11/27/19 08:09 Patient was able to stand with assistance and take a few short steps in his walker. He wants to try to go home. Departure - Departure Time of Disposition: 08:20 Disposition: Home, Self-Care 01 Clinical Impression: Weakness Fatigue Qualifiers: Fatigue type: unspecified Qualified Code(s): R53.83 - Other fatigue - Discharge Information Instructions: Weakness, [id number] Referrals: PCP,None [Primary Care Provider] - Forms: ED Department Discharge Care Plan Goals: Try to resume regular activity and medications, rest as much as needed. Return anytime if not improving satisfactorily or you develop other concerns. Sepsis Event Note (ED) - Evaluation Sepsis Screening Result: No Definite Risk - Focused Exam Vital Signs: Vital Signs Temp Pulse Resp BP Pulse Ox 11/27/19 08:15 63 16 141/78 H 97 11/27/19 06:21 97.0 F 70 20 163/73 H 92 L
[2019-11-27 08:34] VITALS: BP 141/78; PULSE 63
== END 2019-11-27 08:34 | disposition home or self-care (01) ==
LOC: JP.ED 06:15
DX: R53.1 Weakness (principal); R53.83 Other fatigue; R41.0 Disorientation, unspecified; R61 Generalized hyperhidrosis; I10 Essential (primary) hypertension; I48.91 Unspecified atrial fibrillation; E78.00 Pure hypercholesterolemia, unspecified; F32.9 Major depressive disorder, single episode, unspecified; M19.90 Unspecified osteoarthritis, unspecified site; E66.9 Obesity, unspecified; Z88.1 Allergy status to other antibiotic agents; Z79.899 Other long term (current) drug therapy; Z79.82 Long term (current) use of aspirin; Z68.32 Body mass index [BMI] 32.0-32.9, adult; Z87.891 Personal history of nicotine dependence
CPT/HCPCS: 36415; 80048; 81001; 82550; 84484; 85027; 99285

== ENCOUNTER 2019-11-27 18:57 | Observation (INO) | payer BC ==
[2019-11-27] MEDS ORDERED: Sodium Chloride 0.9% 1,000 ML IV ONE (19:11)
[2019-11-27] MEDS ORDERED: Carbidopa/Levodopa 25-100 MG Tab PO ONE (19:25)
--- NOTE | 2019-11-27 19:31 | EDM.PDOC ---
ED HPI GENERAL MEDICAL PROBLEM - General Chief Complaint: General Stated Complaint: STIFF/IMMOBILE Time Seen by Provider: 11/27/19 19:15 Source of Information: Reports: Patient, Old Records, RN History Limitations: Reports: No Limitations - History of Present Illness INITIAL COMMENTS - FREE TEXT/NARRATIVE: 74 yo male was seen here this morning after he had apparently fell out of bed without injuries. His labs were all pretty normal and the attempted to take him home again. However, as the day progressed he got more stiff and she is not able to handle him. He is oriented. She says he does not appear ill, but says his muscles are all very stiff. He has a hard time getting his feet to move when he tries to walk. He walks with a very shuffling gait. Onset: Gradual Duration: Week(s):, Getting Worse Location: Reports: Generalized Quality: Reports: Other (pain is not reported.) Severity: Moderate Improves with: Reports: None Worsens with: Reports: Other (time, usually worse at the end of the day. ) Context: Reports: Other (See HPI) Associated Symptoms: Reports: Confusion (mild at times) Treatments [employer]PER[employer]OR: Reports: Other (see below) (none) - Related Data Allergies Allergy/AdvReac Type Severity Reaction Status Date / Time amoxicillin Allergy Rash Verified 11/27/19 19:15 Home Meds: Home Meds Dofetilide [Tikosyn] 500 mg PO BID 09/30/15 [History] Losartan [Cozaar] 50 mg PO DAILY 09/30/15 [History] Venlafaxine [Venlafaxine HCl ER] 300 mg PO DAILY 09/30/15 [History] atorvaSTATin Calcium [Atorvastatin Calcium] 40 mg PO DAILY 09/30/15 [History] ARIPiprazole [Aripiprazole] 5 mg PO DAILY 09/27/19 [History] Aspirin [Adult Low Dose Aspirin EC] 81 mg PO DAILY 11/27/19 [History] Glucosam/Chondr/Collagn/Hyalur [Glucosamine & Chondroitin Cap] 1 tab PO DAILY 11/27/19 [History] Past Medical History Cardiovascular History: Reports: Afib, High Cholesterol, Hypertension Gastrointestinal History: Reports: Chronic Constipation Genitourinary History: Reports: Urinary Incontinence, UTI, Recurrent Other Genitourinary History: urosepsis March 2019 Musculoskeletal History: Reports: Arthritis Neurological History: Reports: CVA Psychiatric History: Reports: Depression Endocrine/Metabolic History: Reports: Obesity/BMI 30+ Oncologic (Cancer) History: Reports: Other (See Below) Other Oncologic History: skin melanoma not malignant Dermatologic History: Reports: Melanoma - Infectious Disease History Infectious Disease History: Reports: C-Difficile, Measles, Mumps - Past Surgical History HEENT Surgical History: Reports: Oral Surgery GI Surgical History: Reports: Appendectomy Male Surgical History: Reports: None Musculoskeletal Surgical History: Reports: Knee Replacement Social & Family History - Family History Family Medical History: Noncontributory - Tobacco Use Smoking Status *Q: Never Smoker - Caffeine Use Caffeine Use: Reports: None - Recreational Drug Use Recreational Drug Use: No ED ROS GENERAL - Review of Systems Review Of Systems: See Below Constitutional: Reports: No Symptoms HEENT: Reports: No Symptoms Respiratory: Reports: No Symptoms Cardiovascular: Reports: No Symptoms GI/Abdominal: Reports: No Symptoms : Reports: No Symptoms Musculoskeletal: Reports: Muscle Stiffness Skin: Reports: No Symptoms Neurological: Reports: Confusion (mild at times), Difficulty Walking, Gait Disturbance (takes very short steps, hard to get his feet to move. ) Psychiatric: Reports: Other (flat affect) ED EXAM, GENERAL - Physical Exam Exam: See Below Exam Limited By: No Limitations General Appearance: Alert, WD/WN, No Apparent Distress Eye Exam: Bilateral Eye: Normal Inspection Ears: Normal External Exam, Normal Canal, Hearing Grossly Normal, Normal TMs Ear Exam: Bilateral Ear: Auricle Normal, Canal Normal, TM normal Nose: Normal Inspection, No Blood Throat/Mouth: Normal Inspection, Normal Lips, Normal Oropharynx, Normal Voice, No Airway Compromise Head: Atraumatic, Normocephalic Neck: Normal Inspection Respiratory/Chest: No Respiratory Distress, Lungs Clear, Normal Breath Sounds, No Accessory Muscle Use Cardiovascular: Regular Rate, Rhythm, No Edema GI/Abdominal: Normal Bowel Sounds, Soft, Non-Tender, No Distention Back Exam: Normal Inspection. No: CVA Tenderness (R), CVA Tenderness (L) Extremities: Normal Inspection, Normal Range of Motion, Non-Tender, No Pedal Edema Neurological: Alert, Oriented, CN II-XII Intact, No Motor/Sensory Deficits, Slow to Respond, Other (marked muscle stiffness noted with attempting to put his limbs through range of motor testing) Psychiatric: Flat Affect Skin Exam: Warm, Dry, Intact, Normal Color, No Rash Course - Vital Signs Text/Narrative:: Dr. Dill called @ Last Recorded V/S: Last Vital Signs Temp 35.8 C L 11/27/19 19:11 Pulse 71 11/27/19 19:11 Resp 18 11/27/19 19:11 BP 144/81 H 11/27/19 19:11 Pulse Ox 92 L 11/27/19 19:11 - Orders/Labs/Meds Meds: Medications Discontinued Medications Generic Name Dose Route Start Last Admin Trade Name Bob PRN Reason Stop Dose Admin Carbidopa/Levodopa 1 tab 11/27/19 19:25 11/27/19 19:53 Sinemet 25-100 Mg PO 11/27/19 19:26 1 tab ONETIME ONE Administration Sodium Chloride 1,000 mls @ 1,000 mls/hr 11/27/19 19:11 11/27/19 19:55 Normal Saline IV 11/27/19 20:10 1,000 mls/hr .BOLUS ONE Administration Departure - Departure Time of Disposition: 21:25 Disposition: Refer to Observation Condition: Fair Clinical Impression: Inability to return to living situation, Parkinsonian features - Discharge Information *PRESCRIPTION DRUG MONITORING PROGRAM REVIEWED*: Not Applicable *COPY OF PRESCRIPTION DRUG MONITORING REPORT IN PATIENT AMBER: Not Applicable Instructions: Laceration Care, Adult Referrals: PCP,None [Primary Care Provider] - Forms: ED Department Discharge Sepsis Event Note (ED) - Focused Exam Vital Signs: Vital Signs Temp Pulse Resp BP Pulse Ox 11/27/19 19:11 35.8 C L 71 18 144/81 H 92 L
[2019-11-27] MEDS ORDERED: Acetaminophen 325 MG Tab PO PRN (22:31)
[2019-11-28] MEDS ORDERED: Venlafaxine 75 MG Cap.ER PO SCH (09:00)
[2019-11-28] MEDS ORDERED: DOFETILIDE 500 MG PO SCH (09:00)
[2019-11-28] MEDS ORDERED: atorvaSTATin 20 MG Tab PO SCH (09:00)
--- NOTE | 2019-11-28 09:06 | HP ---
IDENTIFYING DATA: Mani Pereira is a 74-year-old male, summering in the [place], [place] area. CHIEF COMPLAINT: Transported to the emergency room this evening with his spouse reporting inability to care for this elderly gentleman. HISTORY OF PRESENT ILLNESS: This elderly male has noted history of paroxysmal atrial fibrillation, obstructive sleep apnea, essential hypertension, and previous depressive disorder. Additionally, he has had history of microvascular stroke precipitation as well as intracerebral bleed of the right thalamic area of the brain earlier this summer. Following hospitalization, he was transferred to transitional care unit at [facility] for rehabilitative services and was subsequently discharged back to his seasonal residence in the [facility] with his accompanying. His reports he has had developing gait disturbance, stiffness, and general weakness. He had a fall from bed today. He denies significant pain. He has had no chest pain, shortness of breath, fever, chills, or cough. PAST MEDICAL HISTORY: As noted, he has a history of obstructive sleep apnea, paroxysmal atrial fibrillation, currently without anticoagulant therapy, hyperlipidemia, and hypertension as well as depressive disorder. Records indicate previous history of appendectomy and left total knee arthroplasty. HABITS: Denies tobacco use. No regular use of alcohol. Does admit to occasional use of coffee. He has had no reported changes in dietary intake. No recent changes in prescription medications. ALLERGIES: REPORTED TO PENICILLINS. CURRENT MEDICATIONS: Atorvastatin 40 mg daily, venlafaxine extended release 300 mg daily, losartan 50 mg daily, Tikosyn 500 mcg b.i.d., Abilify 5 mg once daily. IMMUNIZATIONS: Records indicate he did receive an influenza vaccine this fall. Tetanus booster in 2016. SOCIAL HISTORY: He is retired. Currently residing with his spouse in their [facility] residence and summering at their [place] residence near [place]. FAMILY HISTORY: Unable to obtain. REVIEW OF SYSTEMS: NEUROLOGIC: Prior history of stroke and intracerebral bleed. No headaches or visual changes. Denies hearing loss. No use of hearing aids. Denies current use of glasses. No previous cataracts or glaucoma by the patient's report. CARDIAC: As above. Noted history of paroxysmal atrial fibrillation, hypertension, and hyperlipidemia. He denies chest pain, palpitations, shortness of breath, or syncope. RESPIRATORY: No history of asthma, emphysema, or recent acute respiratory symptoms. GASTROINTESTINAL: Occasional dyspepsia managed with use of Mylanta on a p.r.n. basis by the patient's report. No history of hepatitis, jaundice, gallbladder disease. He denies diarrhea, melena, or hematochezia. GENITOURINARY: Denies chronic renal disease or urinary incontinence. Denies nocturia. MUSCULOSKELETAL: No back, upper extremities, hip, or knee pain. He states he walks independently. Staff have noted a very stiff, slow, shuffling gait suggesting possible Parkinson presentation. PHYSICAL EXAMINATION: VITAL SIGNS: Temperature 35.8 degrees centigrade, pulse 71, respiratory rate 18, blood pressure 144/81, and O2 sat 92% on room air. HEENT: Hearing appears to be intact. Normal canals. Pupils reactive. Sclerae are anicteric. Extraocular eye movements are symmetrical and without nystagmus. No nasal congestion. No oropharyngeal lesions. NECK: Brisk, regular. Carotid pulses without bruits, JVD, adenopathy, or thyromegaly. LUNGS: Mild expiratory rhonchi bilaterally. No wheezes, rales, tachypnea, or retractions. HEART: Regular, without murmurs or gallops noted. Controlled rate. ABDOMEN: Soft and moderately obese. Nontender, nondistended. No organomegaly. No abdominal bruits. Good femoral pulses. No apparent CVA pain. GENITOURINARY AND RECTAL: Omitted. EXTREMITIES: No resting tremor. Symmetrical strength in the upper and lower extremities. Radial, posterior tibial, and dorsal pedal pulses are intact. No pitting edema. No bruises or ecchymotic injuries from recent fall. No ischemic skin changes in the lower extremities. NEUROLOGIC: Cognition is impaired, unable to provide factual demographic information with reliability. Additionally, short-term memory is impaired, unable to identify current place, time, and place of residence as well as medication use. LABORATORY DATA: Labs on admission, none ordered with current ER visit. With clinic visit of earlier today, these include WBC of 7.2, hemoglobin 14.9, hematocrit 47, platelet count 242,000. Sodium 140, potassium 4.6, BUN 20, creatinine 1.3, GFR 54, glucose 116, calcium 9.7, creatine kinase within normal range at 133, troponin less than 0.017. Urinalysis: Specific gravity 1.025, negative dip stick and microscopic portions. IMPRESSION: 1. General weakness and gait disturbance. Questionable early Parkinson disease. 2. History of microvascular stroke and recent intracerebral bleed of the right thalamic area. Questionably secondary to paroxysmal atrial fibrillation. 3. Noted history of paroxysmal atrial fibrillation, currently off anticoagulant therapy with recent intracerebral bleed. 4. Hypertension. 5. Hyperlipidemia. 6. Cognitive impairment with long and short-term memory deficits as well as gait disturbance. PLAN: The patient is admitted to observation bed for continued supportive cares. Full code status is implemented. We will provide 2 g sodium diet. Maintain on medication with the exception of Abilify at the present time. We will request OT and PT evaluation to assess functional status if family is unable to care for this individual, may require return to assisted setting for rehabilitative stay. Allow ambulation with assistance of nursing staff to monitor for potential harm to self or risk of injury. Routine vitals will be monitored. Luke Dill MD /[id number]
--- NOTE | 2019-11-28 10:00 | CT ---
Head wo Cont CLINICAL HISTORY: Weakness, history of bleed COMPARISON: 09/27/2019 TECHNIQUE: Transverse scans were obtained from the base of the skull through the vertex without IV contrast on a multislice, multidetector CT scanner. Auto dosage reduction and iterative reconstruction techniques employed. FINDINGS: Patient is a small area of hemorrhage in the posterior right thalamus now measuring 9 x 5 mm. This has decreased in size just slightly since the prior study. There is no mass effect, hemorrhage, or extraaxial collection. There is moderate periventricular and subcortical lucency similar to prior study. There is an old lacunar-type infarct in the head of the caudate nucleus on the right The basal cisterns and sulci over the convexities are prominent. The ventricles are prominent. IMPRESSION: Slight involution of area of hemorrhage in the posterior right thalamus Old lacunar-type infarct right basal ganglia Moderate atrophy. Moderate chronic ischemic microvascular changes
[2019-11-28] MEDS: VENLAFAXINE 150 MG PO SCH (10:39)
[2019-11-28] MEDS: ATORVASTATIN 40 MG PO SCH (10:39)
[2019-11-28] MEDS: LOSARTAN 50 MG PO SCH (10:40)
[2019-11-28] MEDS: DOFETILIDE 500 MCG PO SCH ×2 (10:40→21:38)
[2019-11-28] MEDS: Aspirin 81 MG Tab.EC PO SCH (10:42)
[2019-11-28] MEDS: Carbidopa/Levodopa 25-100 MG Tab PO SCH ×3 (10:44→21:39)
--- NOTE | 2019-11-28 15:05 | PCM.PN ---
- General Info Date of Service: 11/28/19 Subjective Update: Mr. Pereira is a 74-year-old gentleman who was admitted through the emergency department last night by Dr. Dill. Earlier this summer he experienced an intracerebral hemorrhage and was hospitalized in [place]. He was discharged to the intermediate and was there approximately 1 month, and now has been home about a week. During the course of the week he become progressively more weak with gait disturbance. He was evaluated in the emergency department last night and no obvious new findings were noted other than possible Parkinson's. CT scan of the head is been obtained today and shows that his intercerebral hemorrhage is decreased in size compared to the previous CT scan. He is somewhat confused today and unable to provide a meaningful history concerning recent symptoms or review of systems. - Patient Data Vitals - Most Recent: Last Vital Signs Temp 97.4 F 11/28/19 10:36 Pulse 63 11/28/19 10:36 Resp 16 11/28/19 10:36 BP 134/83 11/28/19 10:40 Pulse Ox 95 11/28/19 10:36 Weight - Most Recent: 231 lb 7.766 oz I&O - Last 24 Hours: Intake & Output 11/27/19 11/28/19 11/28/19 22:59 06:59 14:59 Intake Total 1160 Balance 1160 Med Orders - Current: Current Medications Acetaminophen (Tylenol) 650 mg PO Q4H PRN PRN Reason: Pain Aspirin (Halfprin) 81 mg PO DAILY REPLACED BY [facility] Last Admin: 11/28/19 10:42 Dose: 81 mg Documented by: Carbidopa/Levodopa (Sinemet 25-100 Mg) 1 tab PO TID REPLACED BY [facility] Last Admin: 11/28/19 14:16 Dose: 1 tab Documented by: Losartan Potassium (Cozaar) 50 mg PO DAILY REPLACED BY [facility] Last Admin: 11/28/19 10:40 Dose: 50 mg Documented by: Atorvastatin 40mg * (Pom*) 1 each PO DAILY REPLACED BY [facility] Last Admin: 11/28/19 10:39 Dose: 1 each Documented by: Dofetilide 500mcg * (Pom*) 0 each PO BID REPLACED BY [facility] Last Admin: 11/28/19 10:40 Dose: 1 each Documented by: Venlafaxine 150mg * (Pom*) 0 each PO DAILY REPLACED BY [facility] Last Admin: 09/14/20 10:39 Dose: 1 each Documented by: Discontinued Medications Carbidopa/Levodopa (Sinemet 25-100 Mg) 1 tab PO ONETIME ONE Stop: 11/27/19 19:26 Last Admin: 11/27/19 19:53 Dose: 1 tab Documented by: Sodium Chloride (Normal Saline) 1,000 mls @ 1,000 mls/hr IV .BOLUS ONE Stop: 11/27/19 20:10 Last Admin: 11/27/19 19:55 Dose: 1,000 mls/hr Documented by: - Exam General: Alert, Cooperative, No Acute Distress. No: Oriented Lungs: Clear to Auscultation, Normal Respiratory Effort Cardiovascular: Regular Rate, Regular Rhythm, No Murmurs GI/Abdominal Exam: Soft, Non-Tender, No Organomegaly, No Distention Extremities: Non-Tender, No Pedal Edema Sepsis Event Note - Evaluation Sepsis Screening Result: No Definite Risk - Focused Exam Vital Signs: Vital Signs Temp Pulse Resp BP BP Pulse Ox 11/28/19 10:40 134/83 11/28/19 10:36 97.4 F 63 16 134/83 95 11/28/19 07:00 98.1 F 83 14 163/82 H 95 11/28/19 03:39 98.1 F 65 18 152/82 H 93 L - Problem List Review Problem List Initiated/Reviewed/Updated: Yes - My Orders Last 24 Hours: My Active Orders 11/29/19 05:00 BASIC METABOLIC PANEL,BMP [CHEM] Timed CBC WITH AUTO DIFF [HEME] Timed TSH ULTRASENSITIVE [CHEM] Timed - Plan Plan:: ASSESSMENT AND PLAN PROGRESSIVE WEAKNESS AND GAIT DISTURBANCE-felt to have possible Parkinson's when seen in the emergency department and has been started on Sinemet -Monitor for improvement with Sinemet -Will likely require intermediate placement because of severe weakness INTRACEREBRAL HEMORRHAGE-CT scan shows decrease in size compared to previous scan PAROXYSMAL ATRIAL FIBRILLATION-off of anticoagulation because of recent hemorrhage COGNITIVE IMPAIRMENT-progressive over the past year, worse recently MAINTENANCE ISSUES -DVT prophylaxis; SCUDs, hold on anticoagulation because of cerebral hemorrhage -GI prophylaxis; not indicated -Morrow catheter; not indicated -Nutrition; regular diet -Nicotine dependence; not required CODE STATUS-FULL CODE ADMISSION STATUS-this patient will be admitted to observation status, expect no more than a one night hospital stay for evaluation and management of problems as outlined above. DISPOSITION-anticipate discharge to home after the hospital stay. PRIMARY CARE PROVIDER-
--- NOTE | 2019-11-28 16:24 | PN ---
DATE OF SERVICE: 11/28/2019 SUBJECTIVE: A 74-year-old male, summering in the [facility], was admitted in the late evening hours with reporting imbalance, general weakness, confusion, and noted fall from bed with family unable to provide necessary cares. He had a recent hospitalization with similar presenting symptoms and noted microvascular changes as well as intracerebral bleed, managed conservatively. He has had no headaches. He does have modest confusion as well as a slow shuffling gait, parkinsonian in presentation. He denies pain. He has rested intermittently through the night. No agitation, restlessness, or shortness of breath was noted. OBJECTIVE: GENERAL: Resting comfortably. He is arousable, disoriented to place and time. VITAL SIGNS: Blood pressure 152/82, respiratory rate 18 with O2 saturations of 93% on room air, pulse rate 65, temperature 36.7 degrees centigrade. LUNGS: Clear and non-tachypneic. HEART: Regular without murmurs or gallops. ABDOMEN: Nondistended, nontender. Active sounds noted. NEUROLOGIC: He does engage in conversation, moderately confused. Symmetrical strength. IMPRESSION AND PLAN: History of general weakness with microvascular changes on previous CT imaging. We will obtain followup CT today to exclude the possibility of new stroke-like changes. PT and OT evaluations are pending as well. He is maintained on his usual home medication regimen, and if ongoing supportive cares and rehab efforts are required, we will discuss with family the option of mcc placement in an effort to improve gait and strength. Additionally, we will maintain on carbidopa/levodopa with shuffling gait, suggesting a Parkinson's like presentation. Luke Dill MD /[id number]
[2019-11-29] MEDS: LOSARTAN 50 MG PO SCH (08:52)
[2019-11-29] MEDS: VENLAFAXINE 150 MG PO SCH (08:52)
[2019-11-29] MEDS: DOFETILIDE 500 MCG PO SCH ×2 (08:53→20:45)
[2019-11-29] MEDS: Aspirin 81 MG Tab.EC PO SCH (08:53)
[2019-11-29] MEDS: ATORVASTATIN 40 MG PO SCH (08:53)
[2019-11-29] MEDS: Carbidopa/Levodopa 25-100 MG Tab PO SCH ×2 (08:54→15:15)
--- NOTE | 2019-11-29 17:07 | PCM.PN ---
- General Info Date of Service: 11/29/19 Subjective Update: Mr. Pereira appears to be doing somewhat better today. Thus far doing well with physical therapy and Occupational Therapy. Torrie confused but more alert and interactive. He is unable to provide a meaningful history concerning symptoms or review of systems because of his underlying dementia with confusion. - Patient Data Vitals - Most Recent: Last Vital Signs Temp 95.9 F L 11/29/19 15:00 Pulse 62 11/29/19 15:00 Resp 16 11/29/19 15:00 BP 150/61 H 11/29/19 15:00 Pulse Ox 95 11/29/19 15:00 Weight - Most Recent: 231 lb 7.766 oz I&O - Last 24 Hours: Intake & Output 11/29/19 11/29/19 11/29/19 06:59 14:59 22:59 Intake Total 1080 Balance 1080 Lab Results Last 24 Hours: Laboratory Results - last 24 hr 11/29/19 11/29/19 Range/Units 05:30 05:30 WBC 5.7 (4.5-11.0) K/uL RBC 4.97 (4.30-5.90) M/uL Hgb 14.3 (12.0-15.0) g/dL Hct 44.8 (40.0-54.0) % MCV 90 (80-98) fL MCH 29 (27-31) pg MCHC 32 (32-36) % Plt Count 218 (150-400) K/uL Neut % (Auto) 54 (36-66) % Lymph % (Auto) 31 (24-44) % [place] % (Auto) 11 H (2-6) % Eos % (Auto) 4 (2-4) % Baso % (Auto) 0 (0-1) % Sodium 140 (140-148) mmol/L Potassium 4.1 (3.6-5.2) mmol/L Chloride 104 (100-108) mmol/L Carbon Dioxide 26 (21-32) mmol/L Anion Gap 9.8 (5.0-14.0) mmol/L BUN 18 (7-18) mg/dL Creatinine 1.2 (0.8-1.3) mg/dL Est Cr Clr Drug Dosing 57.48 mL/min Estimated GFR (MDRD) 59 L (>60) Glucose 102 (74-106) mg/dL Calcium 9.4 (8.5-10.1) mg/dL TSH, Ultra Sensitive 0.849 (0.358-3.740) uIU/mL Med Orders - Current: Current Medications Acetaminophen (Tylenol) 650 mg PO Q4H PRN PRN Reason: Pain Aspirin (Halfprin) 81 mg PO DAILY [facility] Last Admin: 11/29/19 08:53 Dose: 81 mg Documented by: Losartan Potassium (Cozaar) 50 mg PO DAILY [facility] Last Admin: 11/29/19 08:52 Dose: 50 mg Documented by: Dofetilide 500mcg * (Pom*) 0 each PO BID [facility] Last Admin: 11/29/19 08:53 Dose: 1 each Documented by: Venlafaxine 150mg * (Pom*) 0 each PO DAILY [facility] Last Admin: 11/29/19 08:52 Dose: 1 each Documented by: Discontinued Medications Carbidopa/Levodopa (Sinemet 25-100 Mg) 1 tab PO ONETIME ONE Stop: 11/27/19 19:26 Last Admin: 11/27/19 19:53 Dose: 1 tab Documented by: Carbidopa/Levodopa (Sinemet 25-100 Mg) 1 tab PO TID [facility] Last Admin: 11/29/19 15:15 Dose: 1 tab Documented by: Sodium Chloride (Normal Saline) 1,000 mls @ 1,000 mls/hr IV .BOLUS ONE Stop: 11/27/19 20:10 Last Admin: 11/27/19 19:55 Dose: 1,000 mls/hr Documented by: Atorvastatin 40mg * (Pom*) 1 each PO DAILY [facility] Last Admin: 11/29/19 08:53 Dose: 1 each Documented by: - Exam Quality Assessment: DVT Prophylaxis General: Alert, Cooperative, No Acute Distress. No: Oriented Lungs: Clear to Auscultation, Normal Respiratory Effort Cardiovascular: Regular Rate, Regular Rhythm, No Murmurs GI/Abdominal Exam: Soft, Non-Tender, No Organomegaly, No Distention Extremities: Non-Tender, No Pedal Edema Sepsis Event Note - Evaluation Sepsis Screening Result: No Definite Risk - Focused Exam Vital Signs: Vital Signs Temp Pulse Resp BP BP BP Pulse Ox 11/29/19 15:00 95.9 F L 62 16 150/61 H 95 11/29/19 11:00 97.9 F 55 L 16 158/80 H 97 11/29/19 08:52 128/60 11/29/19 07:00 98 F 67 16 128/60 94 L - Problem List Review Problem List Initiated/Reviewed/Updated: Yes - Plan Plan:: ASSESSMENT AND PLAN PROGRESSIVE WEAKNESS AND GAIT DISTURBANCE-physically doing better over the past few days -Monitor off of Sinemet over the next 24 hours INTRACEREBRAL HEMORRHAGE-CT scan shows decrease in size compared to previous scan PAROXYSMAL ATRIAL FIBRILLATION-off of anticoagulation because of recent hemorrhage COGNITIVE IMPAIRMENT-progressive over the past year, worse recently MAINTENANCE ISSUES -DVT prophylaxis; SCUDs, hold on anticoagulation because of cerebral hemorrhage -GI prophylaxis; not indicated -Morrow catheter; not indicated -Nutrition; regular diet -Nicotine dependence; not required CODE STATUS-FULL CODE ADMISSION STATUS-this patient will be admitted to observation status, expect no more than a one night hospital stay for evaluation and management of problems as outlined above. DISPOSITION-anticipate discharge to home after the hospital stay. PRIMARY CARE PROVIDER-Denzel Morrison
[2019-11-30] MEDS: VENLAFAXINE 150 MG PO SCH (08:11)
[2019-11-30] MEDS: LOSARTAN 50 MG PO SCH (08:11)
[2019-11-30] MEDS: Aspirin 81 MG Tab.EC PO SCH (08:12)
[2019-11-30] MEDS: DOFETILIDE 500 MCG PO SCH ×2 (08:12→20:25)
--- NOTE | 2019-11-30 14:31 | PCM.PN ---
- General Info Date of Service: 11/30/19 Subjective Update: Mr. Pereira has shown further improvement over the last 24 hours. Strength is improved as well as ability to ambulate and transfer. He is more alert and interactive, but still confused. He is unable to provide a meaningful history concerning symptoms or review of systems because of his dementia and confusion. Functional Status: Reports: Tolerating Diet, Ambulating, Urinating - Patient Data Vitals - Most Recent: Last Vital Signs Temp 96.0 F L 11/30/19 11:05 Pulse 63 11/30/19 11:05 Resp 16 11/30/19 11:05 BP 148/64 H 11/30/19 11:05 Pulse Ox 93 L 11/30/19 11:05 Weight - Most Recent: 231 lb 7.766 oz I&O - Last 24 Hours: Intake & Output 11/29/19 11/30/19 11/30/19 22:59 06:59 14:59 Intake Total 360 Output Total 125 200 Balance -125 -200 360 Med Orders - Current: Current Medications Acetaminophen (Tylenol) 650 mg PO Q4H PRN PRN Reason: Pain Aspirin (Halfprin) 81 mg PO DAILY [facility] Last Admin: 11/30/19 08:12 Dose: 81 mg Documented by: Losartan Potassium (Cozaar) 50 mg PO DAILY [facility] Last Admin: 11/30/19 08:11 Dose: 50 mg Documented by: Dofetilide 500mcg * (Pom*) 0 each PO BID [facility] Last Admin: 11/30/19 08:12 Dose: 1 each Documented by: Venlafaxine 150mg * (Pom*) 0 each PO DAILY [facility] Last Admin: 11/30/19 08:11 Dose: 1 each Documented by: Discontinued Medications Carbidopa/Levodopa (Sinemet 25-100 Mg) 1 tab PO ONETIME ONE Stop: 11/27/19 19:26 Last Admin: 11/27/19 19:53 Dose: 1 tab Documented by: Carbidopa/Levodopa (Sinemet 25-100 Mg) 1 tab PO TID [facility] Last Admin: 11/29/19 15:15 Dose: 1 tab Documented by: Sodium Chloride (Normal Saline) 1,000 mls @ 1,000 mls/hr IV .BOLUS ONE Stop: 11/27/19 20:10 Last Admin: 11/27/19 19:55 Dose: 1,000 mls/hr Documented by: Atorvastatin 40mg * (Pom*) 1 each PO DAILY [facility] Last Admin: 11/29/19 08:53 Dose: 1 each Documented by: - Exam Quality Assessment: DVT Prophylaxis General: Alert, Cooperative, No Acute Distress. No: Oriented Lungs: Clear to Auscultation, Normal Respiratory Effort Cardiovascular: Regular Rate, Regular Rhythm, No Murmurs GI/Abdominal Exam: Soft, Non-Tender, No Organomegaly, No Distention Sepsis Event Note - Evaluation Sepsis Screening Result: No Definite Risk - Focused Exam Vital Signs: Vital Signs Temp Pulse Resp BP BP Pulse Ox 11/30/19 11:05 96.0 F L 63 16 148/64 H 93 L 11/30/19 08:11 146/80 H 11/30/19 07:38 97.4 F 66 16 146/80 H 95 11/30/19 04:00 96.4 F L 68 16 150/61 H 96 - Problem List Review Problem List Initiated/Reviewed/Updated: Yes - My Orders Last 24 Hours: My Active Orders 11/30/19 13:53 CORONAVIRUS COVID-19, JOSE ANGEL Stat - Plan Plan:: ASSESSMENT AND PLAN PROGRESSIVE WEAKNESS AND GAIT DISTURBANCE-physically doing better over the past few days. No stiffness or tremor noted off of Sinemet INTRACEREBRAL HEMORRHAGE-CT scan shows decrease in size compared to previous scan PAROXYSMAL ATRIAL FIBRILLATION-off of anticoagulation because of recent hemorrhage COGNITIVE IMPAIRMENT-progressive over the past year, worse recently MAINTENANCE ISSUES -DVT prophylaxis; SCUDs, hold on anticoagulation because of cerebral hemorrhage -GI prophylaxis; not indicated -Morrow catheter; not indicated -Nutrition; regular diet -Nicotine dependence; not required CODE STATUS-FULL CODE ADMISSION STATUS-this patient will be admitted to observation status, expect no more than a one night hospital stay for evaluation and management of problems as outlined above. DISPOSITION-anticipate discharge to home after the hospital stay. PRIMARY CARE PROVIDER-Denzel Morrison
[2019-12-01] MEDS: DOFETILIDE 500 MCG PO SCH ×2 (08:08→20:24)
[2019-12-01] MEDS: VENLAFAXINE 150 MG PO SCH (08:08)
[2019-12-01] MEDS: Aspirin 81 MG Tab.EC PO SCH (08:08)
[2019-12-01] MEDS: LOSARTAN 50 MG PO SCH (08:08)
--- NOTE | 2019-12-01 13:58 | PCM.PN ---
- General Info Date of Service: 12/01/19 Subjective Update: Mr. Pereira has remained stable over the past 24 hours. He has been more interactive and slowly regaining strength. He is unable to provide a meaningful history concerning recent symptoms or review of systems because of his dementia and confusion. Functional Status: Reports: Tolerating Diet, Ambulating, Urinating - Patient Data Vitals - Most Recent: Last Vital Signs Temp 96.1 F L 12/01/19 10:40 Pulse 74 12/01/19 10:40 Resp 18 12/01/19 10:40 BP 134/76 12/01/19 10:40 Pulse Ox 94 L 12/01/19 10:40 Weight - Most Recent: 231 lb 7.766 oz I&O - Last 24 Hours: Intake & Output 11/30/19 12/01/19 12/01/19 22:59 06:59 14:59 Intake Total 1040 600 Output Total 200 Balance 840 600 Med Orders - Current: Current Medications Acetaminophen (Tylenol) 650 mg PO Q4H PRN PRN Reason: Pain Aspirin (Halfprin) 81 mg PO DAILY [facility] Last Admin: 12/01/19 08:08 Dose: 81 mg Documented by: Losartan Potassium (Cozaar) 50 mg PO DAILY [facility] Last Admin: 12/01/19 08:08 Dose: 50 mg Documented by: Dofetilide 500mcg * (Pom*) 0 each PO BID [facility] Last Admin: 12/01/19 08:08 Dose: 1 each Documented by: Venlafaxine 150mg * (Pom*) 0 each PO DAILY [facility] Last Admin: 12/01/19 08:08 Dose: 1 each Documented by: Discontinued Medications Carbidopa/Levodopa (Sinemet 25-100 Mg) 1 tab PO ONETIME ONE Stop: 11/27/19 19:26 Last Admin: 11/27/19 19:53 Dose: 1 tab Documented by: Carbidopa/Levodopa (Sinemet 25-100 Mg) 1 tab PO TID [facility] Last Admin: 11/29/19 15:15 Dose: 1 tab Documented by: Sodium Chloride (Normal Saline) 1,000 mls @ 1,000 mls/hr IV .BOLUS ONE Stop: 11/27/19 20:10 Last Admin: 11/27/19 19:55 Dose: 1,000 mls/hr Documented by: Atorvastatin 40mg * (Pom*) 1 each PO DAILY [facility] Last Admin: 11/29/19 08:53 Dose: 1 each Documented by: - Exam General: Alert, Cooperative, No Acute Distress. No: Oriented Lungs: Clear to Auscultation, Normal Respiratory Effort Cardiovascular: Regular Rate, Regular Rhythm, No Murmurs GI/Abdominal Exam: Soft, Non-Tender, No Organomegaly, No Distention Extremities: Non-Tender, No Pedal Edema Sepsis Event Note - Evaluation Sepsis Screening Result: No Definite Risk - Focused Exam Vital Signs: Vital Signs Temp Pulse Resp BP BP Pulse Ox 12/01/19 10:40 96.1 F L 74 18 134/76 94 L 12/01/19 08:08 130/68 12/01/19 07:00 96.7 F L 75 16 130/68 95 12/01/19 03:00 96.6 F L 57 L 16 147/83 H 95 - Problem List Review Problem List Initiated/Reviewed/Updated: Yes - My Orders Last 24 Hours: My Active Orders 11/30/19 15:21 CORONAVIRUS COVID-19, JOSE ANGEL Stat - Plan Plan:: ASSESSMENT AND PLAN PROGRESSIVE WEAKNESS AND GAIT DISTURBANCE-physically doing better over the past few days. No stiffness or tremor noted off of Sinemet INTRACEREBRAL HEMORRHAGE-CT scan shows decrease in size compared to previous scan PAROXYSMAL ATRIAL FIBRILLATION-off of anticoagulation because of recent hemorrhage COGNITIVE IMPAIRMENT-progressive over the past year, worse recently MAINTENANCE ISSUES -DVT prophylaxis; SCUDs, hold on anticoagulation because of cerebral hemorrhage -GI prophylaxis; not indicated -Morrow catheter; not indicated -Nutrition; regular diet -Nicotine dependence; not required CODE STATUS-FULL CODE ADMISSION STATUS-this patient will be admitted to observation status, expect no more than a one night hospital stay for evaluation and management of problems as outlined above. DISPOSITION-anticipate discharge to home after the hospital stay. PRIMARY CARE PROVIDER-Denzel Morrison
--- NOTE | 2019-12-01 14:08 | PCM.DCSUM1 ---
Discharge Summary - Hospital Course Brief History: Mr. Pereira is a 74-year-old gentleman who was admitted through the emergency department to [facility] status because of progressive weakness, increased confusion, and weakness. - Discharge Data Discharge Date: 12/02/19 Discharge Disposition: Home, Self-Care 01 Condition: Stable - Referral to Home Health Primary Care Physician: PCP None - Discharge Diagnosis/Problem(s) (1) Frontal lobe dementia SNOMED Code(s): 248483464 ICD Code: G31.09 - OTHER FRONTOTEMPORAL DEMENTIA; F02.80 - DEMENTIA IN OTH DISEASES CLASSD ELSWHR W/O BEHAVRL DISTURB Status: Acute Current Visit: Yes (2) Intraparenchymal hemorrhage of brain SNOMED Code(s): 934160787 ICD Code: I61.9 - NONTRAUMATIC INTRACEREBRAL HEMORRHAGE, UNSPECIFIED Status: Acute Current Visit: No (3) Weakness generalized SNOMED Code(s): 10294170 ICD Code: R53.1 - WEAKNESS Status: Acute Current Visit: No - Patient Summary/Data Consults: Consultations 11/28/19 22:41 Consult to Occupational Therapy [OT Evaluation and Treatment] [CONS] Routine Please Evaluate and Treat. OT Reason for Consult: Strengthening This query below is only for informational purposes and is not editable. Admission Diagnosis/Problem: Weakness PT Evaluation and Treatment [CONS] Routine Please Evaluate and Treat. PT Reason for Consult: Strengthening This query below is only for informational purposes and is not editable. Admission Diagnosis/Problem: Weakness Hospital Course: Mr. Pereira is a 74-year-old gentleman who was admitted through the emergency department by Dr. Dill. Earlier this summer he experienced an intracerebral hemorrhage and was hospitalized in [place]. He was discharged to the long-term and was there approximately 1 month, and now has been home about a week. During the course of the week he become progressively more weak with gait disturbance. He was evaluated in the emergency department and no obvious new findings were noted other than possible Parkinson's. CT scan of the head is been obtained and shows that his intercerebral hemorrhage is decreased in size compared to the previous CT scan. He is confused and unable to provide a meaningful history concerning recent symptoms or review of systems. During the first 48 hours of hospitalization he did slowly improve and became more alert, interactive and stronger. He received daily physical therapy while hospitalized. He was kept longer than 48 hours as we did not have a safe discharge plan. On admission he had been started on Sinemet, this was held during the rest of hospitalization and there were no overt symptoms of Parkinson's noted during that period of time. He was felt to be back to his usual baseline by the time of discharge. Activity will be as tolerated and he will resume his usual diet. Follow-up appointment should be scheduled with his primary care provider within 1 week. - Patient Instructions Diet: Usual Diet as Tolerated Activity: As Tolerated Other/Special Instructions: Please schedule follow-up appointment with primary care provider within 1 week. - Discharge Plan *PRESCRIPTION DRUG MONITORING PROGRAM REVIEWED*: Not Applicable *COPY OF PRESCRIPTION DRUG MONITORING REPORT IN PATIENT AMBER: Not Applicable Home Medications: Home Meds Dofetilide [Tikosyn] 500 mcg PO BID 09/30/15 [History] Losartan [Cozaar] 50 mg PO DAILY 09/30/15 [History] Venlafaxine [Venlafaxine HCl ER] 300 mg PO DAILY 09/30/15 [History] ARIPiprazole [Aripiprazole] 5 mg PO DAILY 09/27/19 [History] Aspirin [Adult Low Dose Aspirin EC] 81 mg PO DAILY 11/27/19 [History] Glucosam/Chondr/Collagn/Hyalur [Glucosamine & Chondroitin Cap] 1 tab PO DAILY 11/27/19 [History] - Discharge Summary/Plan Comment DC Time >30 min.: No - Patient Data Vitals - Most Recent: Last Vital Signs Temp 96.1 F L 12/01/19 10:40 Pulse 74 12/01/19 10:40 Resp 18 12/01/19 10:40 BP 134/76 12/01/19 10:40 Pulse Ox 94 L 12/01/19 10:40 Weight - Most Recent: 231 lb 7.766 oz I&O - Last 24 hours: Intake & Output 11/30/19 12/01/19 12/01/19 22:59 06:59 14:59 Intake Total 1040 600 Output Total 200 Balance 840 600 Med Orders - Current: Current Medications Acetaminophen (Tylenol) 650 mg PO Q4H PRN PRN Reason: Pain Aspirin (Halfprin) 81 mg PO DAILY [facility] Last Admin: 12/01/19 08:08 Dose: 81 mg Documented by: Losartan Potassium (Cozaar) 50 mg PO DAILY [facility] Last Admin: 12/01/19 08:08 Dose: 50 mg Documented by: Dofetilide 500mcg * (Pom*) 0 each PO BID [facility] Last Admin: 12/01/19 08:08 Dose: 1 each Documented by: Venlafaxine 150mg * (Pom*) 0 each PO DAILY [facility] Last Admin: 12/01/19 08:08 Dose: 1 each Documented by: Discontinued Medications Carbidopa/Levodopa (Sinemet 25-100 Mg) 1 tab PO ONETIME ONE Stop: 11/27/19 19:26 Last Admin: 11/27/19 19:53 Dose: 1 tab Documented by: Carbidopa/Levodopa (Sinemet 25-100 Mg) 1 tab PO TID [facility] Last Admin: 11/29/19 15:15 Dose: 1 tab Documented by: Sodium Chloride (Normal Saline) 1,000 mls @ 1,000 mls/hr IV .BOLUS ONE Stop: 11/27/19 20:10 Last Admin: 11/27/19 19:55 Dose: 1,000 mls/hr Documented by: Atorvastatin 40mg * (Pom*) 1 each PO DAILY [facility] Last Admin: 11/29/19 08:53 Dose: 1 each Documented by: - Exam General: Reports: Alert, Cooperative, No Acute Distress. Denies: Oriented Lungs: Reports: Clear to Auscultation, Normal Respiratory Effort Cardiovascular: Reports: Regular Rate, Regular Rhythm, No Murmurs GI/Abdominal Exam: Soft, Non-Tender, No Organomegaly, No Distention
[2019-12-01] MEDS ORDERED: Melatonin 3 MG Tab PO SCH (21:00)
[2019-12-02 07:40] VITALS: BP 146/69; PULSE 63
== END 2019-12-02 08:00 | disposition home or self-care (01) ==
LOC: JP.ED 18:57 → JP.MS 21:18
PROVIDERS: ADMIT Family Medicine; ATTEND Hospitalist
DX: G31.09 Other frontotemporal neurocognitive disorder (principal); F02.80 Dementia in other diseases classified elsewhere, unspecified severity, without behavioral disturbance, psychotic disturbance, mood disturbance, and anxiety; R53.1 Weakness; R26.9 Unspecified abnormalities of gait and mobility; I48.0 Paroxysmal atrial fibrillation; I61.9 Nontraumatic intracerebral hemorrhage, unspecified; G47.33 Obstructive sleep apnea (adult) (pediatric); Z20.828 Contact with and (suspected) exposure to other viral communicable diseases; E78.00 Pure hypercholesterolemia, unspecified; I10 Essential (primary) hypertension; F32.9 Major depressive disorder, single episode, unspecified; E66.9 Obesity, unspecified; E78.5 Hyperlipidemia, unspecified; Z79.82 Long term (current) use of aspirin; Z88.0 Allergy status to penicillin; Z86.73 Personal history of transient ischemic attack (TIA), and cerebral infarction without residual deficits; Z79.899 Other long term (current) drug therapy; Z68.31 Body mass index [BMI] 31.0-31.9, adult
CPT/HCPCS: 36415; 70450; 80048; 84443; 85025; 87635; 96360; 97110; 97162; 97165; 97530; 97535; 99285; A9270; G0378; J7030; U0002